=== PATIENT | female | born 1970 ===

== ENCOUNTER 2017-03-14 06:06 | Day surgery (SDC) | payer OTHER ==
[2016-12-01 08:58] VITALS: BMI 26.5
[2017-03-14] MEDS ORDERED: Propofol 10 mg/ml Inj (20 ML) ONE ×2 (07:58→08:17)
[2017-03-14] MEDS ORDERED: Lidocaine Hydrochloride 5 ML INJ ONE (08:00)
[2017-03-14] MEDS ORDERED: Lactated Ringer's 1,000 ML IV ONE (08:10)
[2017-03-14 08:55] VITALS: TEMP 98.6; O2SAT 100
[2017-03-14 09:26] VITALS: BP 102/60; PULSE 88; RESP 9
== END 2017-03-14 10:20 | disposition home or self-care (01) ==
LOC: C.ENDO 06:06
PROVIDERS: ATTEND Internal Medicine Gastroenterology
DX: K52.89 Other specified noninfective gastroenteritis and colitis (principal); K57.30 Diverticulosis of large intestine without perforation or abscess without bleeding; K64.8 Other hemorrhoids
CPT/HCPCS: 45378; 84703; J2704; J7120